=== PATIENT | female | born 1995 | race Caucasian/White ===

== ENCOUNTER 2017-02-07 19:37 | Emergency (ER) | payer OTHER ==
[~2017-02-07] VITALS: Ht 165.1 cm; Wt 108.9 kg
[~2017-02-07 19:37] MED LIST: AMOXICILLIN500 M2 PO; ANAPROX DS550 MG PO; FLAGYL500 MG PO; GEODON60 MG PO; NAPROSYN500 MG PO; PRENATAL1 TA3 PO; ZITHROMAX Z PA250 MG PO; [UNRECOGNIZED DRUG - OTHER] PO
[2017-02-07 20:13] LABS: BASO % 0.3 % (0.0-1.0); EOS # 0.1 10*3/uL (0.0-0.4); EOS % 1.1 % (1.0-4.0); HEMATOCRIT 36.6 % (37.0-47.0); HEMOGLOBIN 12.4 g/dl (12.0-16.0); LYMPH # 2.4 10*3/uL (1.3-4.4); LYMPH % 23.7 % (27.0-41.0); MEAN CELL VOLUME 78.2 fl (81.0-99.0); MEAN CORPUSCULAR HGB 26.5 pg (27.0-31.0); MEAN CORPUSCULAR HGB CONC 33.9 g/dl (33.0-37.0); MEAN PLATELET VOLUME 10.4 fl (9.6-12.3); MONO # 0.8 10*3/uL (0.1-1.0); MONO % 8.2 % (3.0-9.0); NEUT # 6.8 10*3/uL (2.3-7.9); NEUT % 66.5 % (47.0-73.0); PLATELET COUNT AUTOMATED 270 10*3/uL (130-400); RED BLOOD COUNT 4.68 10*6/uL (4.10-5.10); RED CELL DISTRI WIDTH 13.9 % (0-14.5); WHITE BLOOD COUNT 10.2 10*3/uL (4.8-10.8)
[2017-02-07 20:20] LABS: BILIRUBIN NEGATIVE (NEGATIVE); BLOOD 2+ (NEGATIVE); CLARITY CLOUDY (CLEAR); COLOR YELLOW (YELLOW); GLUCOSE NEGATIVE (NEGATIVE); KETONE NEGATIVE (NEGATIVE); LEUKO ESTERASE 2+ (NEGATIVE); NITRITE NEGATIVE (NEGATIVE); PROTEIN 1+ (NEGATIVE); SPECIFIC GRAVITY 1.025 (1.005-1.030)
[2017-02-07 20:30] LABS: ALBUMIN 3.9 gm/dl (3.1-4.5); ALKALINE PHOSPHATASE 88 U/L (45-117); BILIRUBIN, TOTAL 0.3 mg/dl (0.2-1.0); BUN 13 mg/dl (7-24); CARBON DIOXIDE 29 mmol/L (21-32); CHLORIDE 104 mmol/L (98-107); EST GLOM FILT AFRICAN AMERICAN > 60 ml/min; GLUCOSE 99 mg/dL (65-99); POTASSIUM 3.4 mmol/L (3.5-5.1); SGOT/AST 27 IU/L (3-35); SGPT/ALT 32 U/L (12-78); SODIUM 141 mmol/L (136-145); TOTAL PROTEIN 7.7 gm/dL (6.4-8.2)
[2017-02-07 20:31] LABS: BACTERIA 2+; EPITHELIAL CELLS 30-35; URINE REFLEX COMMENT YES (NO); WBC TNTC wbc/hpf (0-5)
[2017-02-07] MEDS ORDERED: Motrin,Rufen800 MG PO (21:42)
[2017-02-07] MEDS ORDERED: CEFUROXIME AXE250 MG PO (21:42)
== END 2017-02-07 21:31 | disposition home or self-care (01) ==
LOC: ED 19:37
PROVIDERS: Nurse Practitioner Family
DX: N39.0 Urinary tract infection, site not specified (principal)

== ENCOUNTER → 2017-02-08 | Outpatient (CLI) | payer OTHER ==
[~2017-02-08] MED LIST changes: +CEFUROXIME AXE250 MG PO; +MIRALAX POWDER255 G1 PO; +Motrin,Rufen800 MG PO
== END | disposition home or self-care (01) ==
LOC: US 09:25
DX: R10.11 Right upper quadrant pain (principal)

== ENCOUNTER 2017-02-09 20:16 | Emergency (ER) | payer OTHER ==
[~2017-02-09] VITALS: Ht 165.1 cm; Wt 117.9 kg
[~2017-02-09 20:16] MED LIST changes: -MIRALAX POWDER255 G1 PO
[2017-02-09 20:43] LABS: BASO % 0.3 % (0.0-1.0); EOS # 0.1 10*3/uL (0.0-0.4); EOS % 1.6 % (1.0-4.0); HEMATOCRIT 34.2 % (37.0-47.0); HEMOGLOBIN 11.5 g/dl (12.0-16.0); LYMPH # 1.9 10*3/uL (1.3-4.4); LYMPH % 24.5 % (27.0-41.0); MEAN CELL VOLUME 78.4 fl (81.0-99.0); MEAN CORPUSCULAR HGB 26.4 pg (27.0-31.0); MEAN CORPUSCULAR HGB CONC 33.6 g/dl (33.0-37.0); MONO # 0.6 10*3/uL (0.1-1.0); MONO % 7.4 % (3.0-9.0); NEUT # 5.1 10*3/uL (2.3-7.9); NEUT % 66.1 % (47.0-73.0); PLATELET COUNT AUTOMATED 228 10*3/uL (130-400); RED BLOOD COUNT 4.36 10*6/uL (4.10-5.10); WHITE BLOOD COUNT 7.7 10*3/uL (4.8-10.8)
[2017-02-09 20:59] LABS: ALBUMIN 3.8 gm/dl (3.1-4.5); ALKALINE PHOSPHATASE 73 U/L (45-117); BILIRUBIN, TOTAL 0.3 mg/dl (0.2-1.0); BUN 15 mg/dl (7-24); C-REACTIVE PROTEIN 0.34 MG/DL (0-0.3); CARBON DIOXIDE 31 mmol/L (21-32); CHLORIDE 105 mmol/L (98-107); EST GLOM FILT AFRICAN AMERICAN > 60 ml/min; GLUCOSE 100 mg/dL (65-99); SGOT/AST 16 IU/L (3-35); SGPT/ALT 25 U/L (12-78); SODIUM 141 mmol/L (136-145); TOTAL PROTEIN 7.2 gm/dL (6.4-8.2)
[2017-02-09] MEDS ORDERED: MIRALAX POWDER255 G1 PO (21:50)
== END 2017-02-09 22:28 | disposition home or self-care (01) ==
LOC: ED 20:16
PROVIDERS: Emergency Medicine Emergency Medical Services
DX: K59.00 Constipation, unspecified (principal)

== ENCOUNTER 2017-03-18 20:43 | Emergency (ER) | payer OTHER ==
[~2017-03-18] VITALS: Ht 165.1 cm; Wt 108.9 kg
[~2017-03-18 20:43] MED LIST changes: +MIRALAX POWDER255 G1 PO
[2017-03-18] MEDS ORDERED: MIRENA52 MG IU (20:50)
[2017-03-18 21:50] LABS: BILIRUBIN NEGATIVE (NEGATIVE); BLOOD NEGATIVE (NEGATIVE); CLARITY CLEAR (CLEAR); COLOR YELLOW (YELLOW); GLUCOSE NEGATIVE (NEGATIVE); KETONE NEGATIVE (NEGATIVE); LEUKO ESTERASE NEGATIVE (NEGATIVE); NITRITE NEGATIVE (NEGATIVE); PH 5.5 (5.0-9.0); PROTEIN NEGATIVE (NEGATIVE); UROBILINOGEN 0.2 E.U./dl (0.2-1.0)
[2017-03-18 21:54] LABS: BASO % 0.2 % (0.0-1.0); EOS # 0.1 10*3/uL (0.0-0.4); HEMATOCRIT 37.5 % (37.0-47.0); HEMOGLOBIN 12.8 g/dl (12.0-16.0); LYMPH # 1.7 10*3/uL (1.3-4.4); LYMPH % 18.6 % (27.0-41.0); MEAN CELL VOLUME 78.3 fl (81.0-99.0); MEAN CORPUSCULAR HGB 26.7 pg (27.0-31.0); MEAN CORPUSCULAR HGB CONC 34.1 g/dl (33.0-37.0); MEAN PLATELET VOLUME 10.3 fl (9.6-12.3); MONO # 0.7 10*3/uL (0.1-1.0); NEUT # 6.8 10*3/uL (2.3-7.9); NEUT % 72.9 % (47.0-73.0); PLATELET COUNT AUTOMATED 247 10*3/uL (130-400); RED BLOOD COUNT 4.79 10*6/uL (4.10-5.10); RED CELL DISTRI WIDTH 13.7 % (0-14.5); WHITE BLOOD COUNT 9.3 10*3/uL (4.8-10.8)
[2017-03-18 22:00] LABS: URINE AMPHETAMINES < 1000 (1000ng/ml); URINE BARBITURATES < 200 (200ng/ml); URINE COCAINE < 300 (300ng/ml)
[2017-03-18 22:01] LABS: BACTERIA TRACE; MUCOUS 1+; URINE REFLEX COMMENT YES (NO)
[2017-03-18 22:07] LABS: ALKALINE PHOSPHATASE 81 U/L (45-117); BILIRUBIN, TOTAL 0.3 mg/dl (0.2-1.0); BUN 14 mg/dl (7-24); CARBON DIOXIDE 25 mmol/L (21-32); CHLORIDE 107 mmol/L (98-107); EST GLOM FILT AFRICAN AMERICAN > 60 ml/min; GLUCOSE 110 mg/dL (65-99); POTASSIUM 3.6 mmol/L (3.5-5.1); SGOT/AST 18 IU/L (3-35); SGPT/ALT 25 U/L (12-78); SODIUM 143 mmol/L (136-145)
== END 2017-03-18 23:56 | disposition home or self-care (01) ==
LOC: ED 20:43
PROVIDERS: Nurse Practitioner Family
DX: R42 Dizziness and giddiness (principal)

== ENCOUNTER 2017-07-18 18:55 | Emergency (ER) | payer OTHER ==
[~2017-07-18] VITALS: Ht 165.1 cm; Wt 113.4 kg
[~2017-07-18 18:55] MED LIST changes: +MIRENA52 MG IU
[2017-07-18] MEDS ORDERED: AMOXICILLIN500 M2 PO (19:29)
[2017-07-18] MEDS ORDERED: Motrin,Rufen800 MG PO (19:29)
== END 2017-07-18 19:35 | disposition home or self-care (01) ==
LOC: ED 18:55
DX: K08.89 Other specified disorders of teeth and supporting structures (principal)

== ENCOUNTER 2017-11-24 16:53 | Emergency (ER) | payer OTHER ==
[~2017-11-24] VITALS: Ht 165.1 cm; Wt 117.9 kg
[2017-11-24] MEDS ORDERED: Motrin,Rufen800 MG PO (18:08)
== END 2017-11-24 19:49 | disposition home or self-care (01) ==
LOC: ED 16:53
DX: S06.0X0A Concussion without loss of consciousness, initial encounter (principal); M25.511 Pain in right shoulder; W22.01XA Walked into wall, initial encounter; Y93.72 Activity, wrestling; Y92.89 Other specified places as the place of occurrence of the external cause; Y99.9 Unspecified external cause status

== ENCOUNTER 2017-12-16 22:16 | Emergency (ER) | payer OTHER ==
[~2017-12-16] VITALS: Ht 165.1 cm; Wt 117.9 kg
[2017-12-16] MEDS ORDERED: DOXEPIN50 MG PO (22:25)
[2017-12-16 22:46] LABS: BILIRUBIN NEGATIVE (NEGATIVE); BLOOD 3+ (NEGATIVE); CLARITY CLOUDY (CLEAR); COLOR YELLOW (YELLOW); GLUCOSE NEGATIVE (NEGATIVE); KETONE NEGATIVE (NEGATIVE); LEUKO ESTERASE 1+ (NEGATIVE); NITRITE NEGATIVE (NEGATIVE); PH 5.5 (5.0-9.0); SPECIFIC GRAVITY >= 1.030 (1.005-1.030); UROBILINOGEN 0.2 E.U./dl (0.2-1.0)
[2017-12-16 22:53] LABS: BACTERIA 1+; EPITHELIAL CELLS 51-100
[2017-12-16 22:54] LABS: RBC 31-40 rbc/hpf (0-2)
[2017-12-16] MEDS ORDERED: PYRIDIUM200 M1 PO (23:04)
[2017-12-16] MEDS ORDERED: MACROBID100 M1 PO (23:04)
== END 2017-12-16 23:28 | disposition home or self-care (01) ==
LOC: ED 22:16
PROVIDERS: Emergency Medicine Emergency Medical Services
DX: R30.0 Dysuria (principal); N39.0 Urinary tract infection, site not specified

== ENCOUNTER 2017-12-20 19:48 | Emergency (ER) | payer OTHER ==
[~2017-12-20] VITALS: Ht 165.1 cm; Wt 125.2 kg
[~2017-12-20 19:48] MED LIST changes: +DOXEPIN50 MG PO; +MACROBID100 M1 PO; +PYRIDIUM200 M1 PO
[2017-12-20 20:33] LABS: BASO % 0.2 % (0.0-1.0); EOS # 0.1 10*3/uL (0.0-0.4); EOS % 1.3 % (1.0-4.0); HEMATOCRIT 37.6 % (37.0-47.0); HEMOGLOBIN 12.8 g/dl (12.0-16.0); LYMPH # 2.2 10*3/uL (1.3-4.4); LYMPH % 24.1 % (27.0-41.0); MEAN CELL VOLUME 81.9 fl (81.0-99.0); MEAN CORPUSCULAR HGB 27.9 pg (27.0-31.0); MEAN PLATELET VOLUME 10.1 fl (9.6-12.3); MONO # 0.7 10*3/uL (0.1-1.0); MONO % 7.4 % (3.0-9.0); NEUT % 66.7 % (47.0-73.0); PLATELET COUNT AUTOMATED 273 10*3/uL (130-400); RED BLOOD COUNT 4.59 10*6/uL (4.10-5.10); RED CELL DISTRI WIDTH 12.7 % (0-14.5); WHITE BLOOD COUNT 9.1 10*3/uL (4.8-10.8)
[2017-12-20 20:41] LABS: BILIRUBIN NEGATIVE (NEGATIVE); BLOOD 2+ (NEGATIVE); CLARITY SL CLOUDY (CLEAR); COLOR ORANGE (YELLOW); GLUCOSE TRACE (NEGATIVE); KETONE NEGATIVE (NEGATIVE); NITRITE POSITIVE (NEGATIVE); SPECIFIC GRAVITY 1.025 (1.005-1.030)
[2017-12-20 20:49] LABS: ALBUMIN 3.9 gm/dl (3.1-4.5); ALKALINE PHOSPHATASE 92 U/L (45-117); BUN 15 mg/dl (7-24); CHLORIDE 105 mmol/L (98-107); CREATININE 0.74 mg/dL (0.55-1.02); POTASSIUM 3.5 mmol/L (3.5-5.1); SGOT/AST 24 IU/L (3-35); SGPT/ALT 41 U/L (12-78); SODIUM 139 mmol/L (136-145); TOTAL PROTEIN 7.7 gm/dL (6.4-8.2)
[2017-12-20 20:54] LABS: LEUKO ESTERASE 1+ (NEGATIVE)
[2017-12-20 20:57] LABS: BACTERIA 2+; EPITHELIAL CELLS 31-40
[2017-12-20 20:58] LABS: RBC 21-30 rbc/hpf (0-2)
[2017-12-20] MEDS ORDERED: AMINOPHYLLIN200 MG PO (21:55)
== END 2017-12-20 21:56 | disposition home or self-care (01) ==
LOC: ED 19:48
PROVIDERS: Nurse Practitioner Family
DX: N39.0 Urinary tract infection, site not specified (principal)

== ENCOUNTER → 2018-01-29 | Outpatient (CLI) | payer OTHER ==
[~2018-01-29] MED LIST changes: +AMINOPHYLLIN200 MG PO
== END | disposition home or self-care (01) ==
LOC: CT 01-17 11:00
DX: R31.9 Hematuria, unspecified (principal); R16.1 Splenomegaly, not elsewhere classified

== ENCOUNTER 2018-02-23 16:23 | Emergency (ER) | payer OTHER ==
[~2018-02-23] VITALS: Ht 165.1 cm; Wt 120.2 kg
[2018-02-23] MEDS ORDERED: LATU40TA PO (16:34)
[2018-02-23] MEDS ORDERED: IBUPROFEN600 MG PO (18:26)
[2018-02-23] MEDS ORDERED: CEFADROXIL500 M1 PO (18:26)
== END 2018-02-23 18:49 | disposition home or self-care (01) ==
LOC: ED 16:23
DX: S61.431A Puncture wound without foreign body of right hand, initial encounter (principal); Z79.899 Other long term (current) drug therapy; W26.0XXA Contact with knife, initial encounter; Y93.89 Activity, other specified; Y92.89 Other specified places as the place of occurrence of the external cause; Y99.9 Unspecified external cause status

== ENCOUNTER 2018-05-15 21:54 | Emergency (ER) | payer OTHER ==
[~2018-05-15] VITALS: Ht 165.1 cm; Wt 127.0 kg
[~2018-05-15 21:54] MED LIST changes: +CEFADROXIL500 M1 PO; +IBUPROFEN600 MG PO; +LATU40TA PO
[2018-05-15] MEDS ORDERED: IBU800 MG PO (22:33)
[2018-05-15] MEDS ORDERED: CYCLOBENZAPRINE10 MG PO (22:33)
[2018-05-15] MEDS ORDERED: PREDNISONE50 MG PO (22:33)
== END 2018-05-15 22:45 | disposition home or self-care (01) ==
LOC: ED 21:54
DX: M54.9 Dorsalgia, unspecified (principal); Z79.899 Other long term (current) drug therapy

== ENCOUNTER 2018-06-04 17:59 | Emergency (ER) | payer OTHER ==
[~2018-06-04] VITALS: Ht 165.1 cm; Wt 117.9 kg
[~2018-06-04 17:59] MED LIST changes: +CYCLOBENZAPRINE10 MG PO; +IBU800 MG PO; +PREDNISONE50 MG PO
[2018-06-04 18:39] LABS: BASO % 0.1 % (0.0-1.0); EOS # 0.1 10*3/uL (0.0-0.4); EOS % 1.4 % (1.0-4.0); HEMATOCRIT 34.5 % (37.0-47.0); LYMPH # 1.9 10*3/uL (1.3-4.4); LYMPH % 25.3 % (27.0-41.0); MEAN CELL VOLUME 78.8 fl (81.0-99.0); MEAN CORPUSCULAR HGB 27.4 pg (27.0-31.0); MEAN CORPUSCULAR HGB CONC 34.8 g/dl (33.0-37.0); MEAN PLATELET VOLUME 9.8 fl (9.6-12.3); MONO # 0.6 10*3/uL (0.1-1.0); MONO % 7.5 % (3.0-9.0); NEUT % 65.4 % (47.0-73.0); PLATELET COUNT AUTOMATED 240 10*3/uL (130-400); RED BLOOD COUNT 4.38 10*6/uL (4.10-5.10); RED CELL DISTRI WIDTH 13.7 % (0-14.5); WHITE BLOOD COUNT 7.6 10*3/uL (4.8-10.8)
[2018-06-04 18:55] LABS: ALBUMIN 3.4 gm/dl (3.1-4.5); ALKALINE PHOSPHATASE 80 U/L (45-117); BUN 14 mg/dl (7-24); CHLORIDE 106 mmol/L (98-107); CREATININE 0.76 mg/dL (0.55-1.02); POTASSIUM 3.6 mmol/L (3.5-5.1); SGOT/AST 17 IU/L (3-35); SGPT/ALT 26 U/L (12-78); SODIUM 141 mmol/L (136-145)
== END 2018-06-04 18:58 | disposition home or self-care (01) ==
LOC: ED 17:59
PROVIDERS: Nurse Practitioner Family
DX: R68.84 Jaw pain (principal); R03.0 Elevated blood-pressure reading, without diagnosis of hypertension; Z79.899 Other long term (current) drug therapy

== ENCOUNTER 2018-07-02 17:19 | Emergency (ER) | payer OTHER ==
[~2018-07-02] VITALS: Wt 857.3 kg
== END 2018-07-02 18:33 | disposition home or self-care (01) ==
LOC: ED 17:19
DX: B34.9 Viral infection, unspecified (principal); R03.0 Elevated blood-pressure reading, without diagnosis of hypertension; F17.200 Nicotine dependence, unspecified, uncomplicated; Z79.899 Other long term (current) drug therapy

== ENCOUNTER 2018-07-27 05:59 | Emergency (ER) | payer OTHER ==
[~2018-07-27] VITALS: Ht 165.1 cm; Wt 113.4 kg
[2018-07-27] MEDS ORDERED: ZOFRAN ODT4 MG SL (07:49)
== END 2018-07-27 07:55 | disposition home or self-care (01) ==
LOC: ED 05:59
DX: G43.B0 Ophthalmoplegic migraine, not intractable (principal); Z79.899 Other long term (current) drug therapy

== ENCOUNTER 2018-08-03 02:08 | Emergency (ER) | payer OTHER ==
[~2018-08-03] VITALS: Ht 165.1 cm; Wt 117.9 kg
[~2018-08-03 02:08] MED LIST changes: +ZOFRAN ODT4 MG SL
[2018-08-03 03:01] LABS: BILIRUBIN NEGATIVE (NEGATIVE); BLOOD NEGATIVE (NEGATIVE); CLARITY CLEAR (CLEAR); COLOR YELLOW (YELLOW); GLUCOSE NEGATIVE (NEGATIVE); KETONE NEGATIVE (NEGATIVE); LEUKO ESTERASE 1+ (NEGATIVE); NITRITE NEGATIVE (NEGATIVE); UROBILINOGEN 0.2 E.U./dl (0.2-1.0)
[2018-08-03 03:07] LABS: BACTERIA TRACE
[2018-08-03 03:28] LABS: BASO % 0.5 % (0.0-1.0); EOS # 0.1 10*3/uL (0.0-0.4); EOS % 1.5 % (1.0-4.0); HEMATOCRIT 33.4 % (37.0-47.0); HEMOGLOBIN 11.5 g/dl (12.0-16.0); LYMPH # 2.1 10*3/uL (1.3-4.4); LYMPH % 24.7 % (27.0-41.0); MEAN CELL VOLUME 81.9 fl (81.0-99.0); MEAN CORPUSCULAR HGB 28.2 pg (27.0-31.0); MEAN CORPUSCULAR HGB CONC 34.4 g/dl (33.0-37.0); MEAN PLATELET VOLUME 9.7 fl (9.6-12.3); MONO # 0.6 10*3/uL (0.1-1.0); MONO % 6.9 % (3.0-9.0); NEUT # 5.6 10*3/uL (2.3-7.9); NEUT % 65.9 % (47.0-73.0); PLATELET COUNT AUTOMATED 247 10*3/uL (130-400); RED BLOOD COUNT 4.08 10*6/uL (4.10-5.10); RED CELL DISTRI WIDTH 13.5 % (0-14.5); WHITE BLOOD COUNT 8.5 10*3/uL (4.8-10.8)
[2018-08-03 03:44] LABS: ALBUMIN 3.3 gm/dl (3.1-4.5); ALKALINE PHOSPHATASE 64 U/L (45-117); BUN 10 mg/dl (7-24); CHLORIDE 107 mmol/L (98-107); CREATININE 0.76 mg/dL (0.55-1.02); LIPASE 107 U/L (73-393); POTASSIUM 3.8 mmol/L (3.5-5.1); SGOT/AST 18 IU/L (3-35); SGPT/ALT 29 U/L (12-78); SODIUM 142 mmol/L (136-145); TOTAL PROTEIN 6.9 gm/dL (6.4-8.2)
== END 2018-08-03 04:48 | disposition home or self-care (01) ==
LOC: ED 02:08
PROVIDERS: Emergency Medicine
DX: R10.9 Unspecified abdominal pain (principal); N64.4 Mastodynia; G43.B0 Ophthalmoplegic migraine, not intractable; Z79.899 Other long term (current) drug therapy

== ENCOUNTER 2018-09-22 14:07 | Emergency (ER) | payer OTHER ==
[~2018-09-22] VITALS: Ht 165.1 cm; Wt 117.9 kg
[2018-09-22 15:26] LABS: BILIRUBIN 1+ (NEGATIVE); BLOOD 3+ (NEGATIVE); CLARITY CLOUDY (CLEAR); COLOR YELLOW (YELLOW); GLUCOSE NEGATIVE (NEGATIVE); KETONE TRACE (NEGATIVE); LEUKO ESTERASE 2+ (NEGATIVE); NITRITE NEGATIVE (NEGATIVE); SPECIFIC GRAVITY 1.025 (1.005-1.030)
[2018-09-22 15:39] LABS: BACTERIA 3+; EPITHELIAL CELLS 21-30; RBC 16-20 rbc/hpf (0-2); WBC 31-40 wbc/hpf (0-5)
== END 2018-09-22 16:07 | disposition home or self-care (01) ==
LOC: ED 14:07
PROVIDERS: Emergency Medicine
DX: R10.13 Epigastric pain (principal); E66.01 Morbid (severe) obesity due to excess calories; F17.200 Nicotine dependence, unspecified, uncomplicated; Z79.899 Other long term (current) drug therapy

== ENCOUNTER 2018-10-16 22:17 | Emergency (ER) | payer OTHER ==
[~2018-10-16] VITALS: Ht 165.1 cm; Wt 117.9 kg
[2018-10-16] MEDS ORDERED: TESSALON PERLE100 M1 PO (23:14)
== END 2018-10-16 23:52 | disposition home or self-care (01) ==
LOC: ED 22:17
DX: J06.9 Acute upper respiratory infection, unspecified (principal); R32 Unspecified urinary incontinence; F17.200 Nicotine dependence, unspecified, uncomplicated; Z79.899 Other long term (current) drug therapy

== ENCOUNTER 2018-11-23 02:07 | Emergency (ER) | payer OTHER ==
[~2018-11-23] VITALS: Ht 167.6 cm; Wt 140.6 kg
[~2018-11-23 02:07] MED LIST changes: +TESSALON PERLE100 M1 PO
[2018-11-23] MEDS ORDERED: CEPHALEXIN500 M1 PO (02:19)
== END 2018-11-23 02:45 | disposition home or self-care (01) ==
LOC: ED 02:07
DX: S91.332A Puncture wound without foreign body, left foot, initial encounter (principal); Z79.899 Other long term (current) drug therapy; W22.8XXA Striking against or struck by other objects, initial encounter; Y93.89 Activity, other specified; Y92.89 Other specified places as the place of occurrence of the external cause; Y99.8 Other external cause status

== ENCOUNTER 2019-01-28 20:30 | Emergency (ER) | payer OTHER ==
[~2019-01-28] VITALS: Ht 165.1 cm; Wt 117.9 kg
[~2019-01-28 20:30] MED LIST changes: +CEPHALEXIN500 M1 PO
[2019-01-28] MEDS ORDERED: 'CLONIDINE0.1 MG PO (20:47)
[2019-01-28] MEDS ORDERED: CITALOPRAM20 MG PO (20:47)
[2019-01-28] MEDS ORDERED: HYDROXYZINE PAM25 M1 PO (20:49)
[2019-01-28 21:18] LABS: BILIRUBIN NEGATIVE (NEGATIVE); BLOOD NEGATIVE (NEGATIVE); CLARITY SL CLOUDY (CLEAR); COLOR YELLOW (YELLOW); GLUCOSE NEGATIVE (NEGATIVE); KETONE NEGATIVE (NEGATIVE); LEUKO ESTERASE 2+ (NEGATIVE); NITRITE NEGATIVE (NEGATIVE)
[2019-01-28 21:28] LABS: EPITHELIAL CELLS 16-20; WBC 16-20 wbc/hpf (0-5)
[2019-01-28 21:29] LABS: BACTERIA 1+
[2019-01-28] MEDS ORDERED: AMINOPHYLLIN200 MG PO (21:48)
== END 2019-01-28 23:30 | disposition home or self-care (01) ==
LOC: ED 20:30
PROVIDERS: Physician Assistant
DX: N39.0 Urinary tract infection, site not specified (principal); Z87.440 Personal history of urinary (tract) infections

== ENCOUNTER 2019-03-18 16:36 | Emergency (ER) | payer OTHER ==
[~2019-03-18] VITALS: Ht 165.1 cm; Wt 117.9 kg
--- NOTE | ~2019-03-18 | EKG ---
[place], [place] ELECTROCARDIOGRAM REPORT NAME: JOSSY RICE UNIT #: [id number] ROOM: DOCTOR: EPIPHANY DRAFT REPORT BIRTHDATE: [birth year] [facility] Test Date: 2019-03-18 Test Time: 17:12:51 Pat Name: JOSSY RICE Department: ER Room: Gender: F Mixer Lever Operator: EKG.CT : 1995 Requested By: DARION WALDROP Order Number: [id number] Reading MD: Tony Saucedo MD Measurements Intervals [place] Rate: 90 P: 40 MD: 148 QRS: -15 QRSD: 93 T: 8 QT: 358 QTc: 438 Interpretive Statements Sinus rhythm Borderline left axis deviation Electronically Signed On 03-21-2019 4:13:50 PDT by Tony Saucedo MD CM:EKGRPT:ELECTROCARDIOGRAM REPORT [id number] [id number] DARION WALDROP EPIPHANY DRAFT REPORT DARION WALDROP
[~2019-03-18 16:36] MED LIST changes: +'CLONIDINE0.1 MG PO; +CITALOPRAM20 MG PO; +HYDROXYZINE PAM25 M1 PO
[2019-03-18 17:09] LABS: BASO % 0.3 % (0.0-1.0); EOS # 0.1 10*3/uL (0.0-0.4); EOS % 1.1 % (1.0-4.0); HEMATOCRIT 35.6 % (37.0-47.0); HEMOGLOBIN 12.3 g/dl (12.0-16.0); LYMPH # 1.6 10*3/uL (1.3-4.4); LYMPH % 20.7 % (27.0-41.0); MEAN CELL VOLUME 81.5 fl (81.0-99.0); MEAN CORPUSCULAR HGB 28.1 pg (27.0-31.0); MEAN CORPUSCULAR HGB CONC 34.6 g/dl (33.0-37.0); MONO # 0.6 10*3/uL (0.1-1.0); MONO % 7.6 % (3.0-9.0); NEUT # 5.5 10*3/uL (2.3-7.9); PLATELET COUNT AUTOMATED 279 10*3/uL (130-400); RED BLOOD COUNT 4.37 10*6/uL (4.10-5.10); RED CELL DISTRI WIDTH 14.1 % (0-14.5); WHITE BLOOD COUNT 7.9 10*3/uL (4.8-10.8)
[2019-03-18 17:24] LABS: ALBUMIN 3.4 gm/dl (3.1-4.5); ALKALINE PHOSPHATASE 82 U/L (45-117); BUN 4 mg/dl (7-24); CHLORIDE 108 mmol/L (98-107); CREATININE 0.81 mg/dL (0.55-1.02); LIPASE 60 U/L (73-393); POTASSIUM 3.6 mmol/L (3.5-5.1); SGOT/AST 17 IU/L (3-35); SGPT/ALT 34 U/L (12-78); SODIUM 139 mmol/L (136-145); TOTAL PROTEIN 6.9 gm/dL (6.4-8.2)
[2019-03-18 17:28] LABS: TROPONIN I < 0.015 ng/ml (<0.045)
[2019-03-18] MEDS ORDERED: NAPROSYN500 MG PO (18:46)
== END 2019-03-18 19:15 | disposition home or self-care (01) ==
LOC: ED 16:36
PROVIDERS: Nurse Practitioner Family
DX: M94.0 Chondrocostal junction syndrome [Tietze] (principal)

== ENCOUNTER 2019-04-01 18:11 | Emergency (ER) | payer OTHER ==
[~2019-04-01] VITALS: Ht 165.1 cm; Wt 97.5 kg
[2019-04-01] MEDS ORDERED: PROAIR HFA8.5 GM INH (18:29)
[2019-04-01] MEDS ORDERED: TESSALON PERLE100 M1 PO (18:29)
== END 2019-04-01 20:37 | disposition home or self-care (01) ==
LOC: ED 18:11
DX: J06.9 Acute upper respiratory infection, unspecified (principal); F17.200 Nicotine dependence, unspecified, uncomplicated; Z79.2 Long term (current) use of antibiotics; Z79.899 Other long term (current) drug therapy

== ENCOUNTER 2019-05-10 22:29 | Emergency (ER) | payer OTHER ==
[~2019-05-10] VITALS: Ht 165.1 cm; Wt 117.9 kg
[~2019-05-10 22:29] MED LIST changes: +PROAIR HFA8.5 GM INH
== END 2019-05-11 00:30 | disposition home or self-care (01) ==
LOC: ED 22:29
DX: S83.91XA Sprain of unspecified site of right knee, initial encounter (principal); W01.0XXA Fall on same level from slipping, tripping and stumbling without subsequent striking against object, initial encounter; Y93.89 Activity, other specified; Y92.89 Other specified places as the place of occurrence of the external cause; Y99.8 Other external cause status

== ENCOUNTER 2019-05-30 01:06 | Emergency (ER) | payer OTHER ==
[~2019-05-30] VITALS: Ht 165.1 cm; Wt 142.4 kg
== END 2019-05-30 01:54 | disposition home or self-care (01) ==
LOC: ED 01:06
DX: M25.561 Pain in right knee (principal)

== ENCOUNTER 2019-06-04 16:21 | Emergency (ER) | payer OTHER ==
[~2019-06-04] VITALS: Ht 165.1 cm; Wt 142.4 kg
[2019-06-04] MEDS ORDERED: ANAPROX DS550 MG PO (16:52)
== END 2019-06-04 17:48 | disposition home or self-care (01) ==
LOC: ED 16:21
DX: M25.561 Pain in right knee (principal); F17.200 Nicotine dependence, unspecified, uncomplicated; Z79.899 Other long term (current) drug therapy; W18.39XA Other fall on same level, initial encounter; Y93.01 Activity, walking, marching and hiking; Y92.828 Other wilderness area as the place of occurrence of the external cause; Y99.8 Other external cause status

== ENCOUNTER 2019-10-26 11:47 | Emergency (ER) | payer OTHER ==
[~2019-10-26] VITALS: Ht 170.1 cm; Wt 131.1 kg
== END 2019-10-26 13:05 | disposition home or self-care (01) ==
LOC: ED 11:47
DX: B34.9 Viral infection, unspecified (principal); Z79.899 Other long term (current) drug therapy

== ENCOUNTER → 2019-11-09 | Outpatient (CLI) | payer OTHER | END | disposition home or self-care (01) | LOC: LAB 12:31 | DX: Z51.81 Encounter for therapeutic drug level monitoring (principal); Z79.899 Other long term (current) drug therapy ==

== ENCOUNTER → 2019-11-13 | Outpatient (CLI) | payer OTHER | END | disposition home or self-care (01) | LOC: US 09:39 | DX: N83.202 Unspecified ovarian cyst, left side (principal); R10.84 Generalized abdominal pain ==

== ENCOUNTER 2019-11-26 10:01 | Emergency (ER) | payer OTHER ==
[~2019-11-26] VITALS: Ht 165.1 cm; Wt 132.9 kg
[2019-11-26 10:43] LABS: BASO % 0.5 % (0.0-1.0); EOS # 0.3 10*3/uL (0.0-0.4); EOS % 5.4 % (1.0-4.0); HEMOGLOBIN 12.2 g/dl (12.0-16.0); LYMPH # 1.1 10*3/uL (1.3-4.4); LYMPH % 17.9 % (27.0-41.0); MEAN CELL VOLUME 81.1 fl (81.0-99.0); MEAN CORPUSCULAR HGB 26.8 pg (27.0-31.0); MEAN PLATELET VOLUME 9.9 fl (9.6-12.3); MONO # 0.6 10*3/uL (0.1-1.0); MONO % 9.8 % (3.0-9.0); NEUT # 4.1 10*3/uL (2.3-7.9); NEUT % 66.1 % (47.0-73.0); PLATELET COUNT AUTOMATED 274 10*3/uL (130-400); RED BLOOD COUNT 4.56 10*6/uL (4.10-5.10); RED CELL DISTRI WIDTH 13.7 % (0-14.5); WHITE BLOOD COUNT 6.2 10*3/uL (4.8-10.8)
[2019-11-26 10:52] LABS: BILIRUBIN NEGATIVE (NEGATIVE); BLOOD 1+ (NEGATIVE); CLARITY SL CLOUDY (CLEAR); COLOR YELLOW (YELLOW); GLUCOSE NEGATIVE (NEGATIVE); KETONE NEGATIVE (NEGATIVE); SPECIFIC GRAVITY 1.015 (1.005-1.030); UROBILINOGEN 0.2 E.U./dl (0.2-1.0)
[2019-11-26 10:53] LABS: BACTERIA 4+; EPITHELIAL CELLS 25-30; LEUKO ESTERASE TRACE (NEGATIVE); MUCOUS 1+; NITRITE NEGATIVE (NEGATIVE)
[2019-11-26 10:57] LABS: ALBUMIN 3.7 gm/dl (3.1-4.5); ALKALINE PHOSPHATASE 89 U/L (45-117); BUN 11 mg/dl (7-24); CHLORIDE 107 mmol/L (98-107); CREATININE 0.79 mg/dL (0.55-1.02); POTASSIUM 3.7 mmol/L (3.5-5.1); SGOT/AST 13 IU/L (3-35); SGPT/ALT 25 U/L (12-78); SODIUM 141 mmol/L (136-145)
[2019-11-26] MEDS ORDERED: AUGMENTIN 875-875 MG PO (12:02)
[2019-11-26] MEDS ORDERED: TESSALON PERLE100 MG PO (12:02)
== END 2019-11-26 12:18 | disposition home or self-care (01) ==
LOC: ED 10:01
PROVIDERS: Nurse Practitioner Family
DX: J01.90 Acute sinusitis, unspecified (principal); F17.200 Nicotine dependence, unspecified, uncomplicated; Z79.899 Other long term (current) drug therapy

== ENCOUNTER → 2019-11-29 | Outpatient (CLI) | payer OTHER ==
[~2019-11-29] MED LIST changes: +AUGMENTIN 875-875 MG PO; +TESSALON PERLE100 MG PO
== END | disposition home or self-care (01) ==
LOC: NM 11-27 07:00
DX: R10.84 Generalized abdominal pain (principal)

== ENCOUNTER 2020-01-19 18:39 | Emergency (ER) | payer OTHER ==
[~2020-01-19] VITALS: Ht 165.1 cm; Wt 131.1 kg
[2020-01-19] MEDS ORDERED: BROMFED DM COU118 M2 PO (19:57)
== END 2020-01-19 20:23 | disposition home or self-care (01) ==
LOC: ED 18:39
DX: J06.9 Acute upper respiratory infection, unspecified (principal); G43.909 Migraine, unspecified, not intractable, without status migrainosus; F41.9 Anxiety disorder, unspecified; F32.9 Major depressive disorder, single episode, unspecified; F17.200 Nicotine dependence, unspecified, uncomplicated; Z79.899 Other long term (current) drug therapy; Z79.2 Long term (current) use of antibiotics

== ENCOUNTER 2020-03-10 22:15 | Emergency (ER) | payer OTHER ==
[~2020-03-10] VITALS: Ht 165.1 cm; Wt 137.9 kg
[~2020-03-10 22:15] MED LIST changes: +BROMFED DM COU118 M2 PO
[2020-03-10 23:32] LABS: BASO % 0.2 % (0.0-1.0); EOS # 0.8 10*3/uL (0.0-0.4); EOS % 7.1 % (1.0-4.0); HEMATOCRIT 34.9 % (37.0-47.0); LYMPH # 2.1 10*3/uL (1.3-4.4); LYMPH % 20.3 % (27.0-41.0); MEAN CELL VOLUME 80.4 fl (81.0-99.0); MEAN CORPUSCULAR HGB CONC 33.5 g/dl (33.0-37.0); MEAN PLATELET VOLUME 9.5 fl (9.6-12.3); MONO # 0.6 10*3/uL (0.1-1.0); MONO % 5.8 % (3.0-9.0); NEUT # 6.9 10*3/uL (2.3-7.9); NEUT % 66.1 % (47.0-73.0); PLATELET COUNT AUTOMATED 290 10*3/uL (130-400); RED BLOOD COUNT 4.34 10*6/uL (4.10-5.10); RED CELL DISTRI WIDTH 13.7 % (0-14.5); WHITE BLOOD COUNT 10.5 10*3/uL (4.8-10.8)
[2020-03-10 23:46] LABS: ALBUMIN 3.5 gm/dl (3.1-4.5); ALKALINE PHOSPHATASE 67 U/L (45-117); BUN 12 mg/dl (7-24); CHLORIDE 107 mmol/L (98-107); CREATININE 0.68 mg/dL (0.55-1.02); LIPASE 65 U/L (73-393); POTASSIUM 3.7 mmol/L (3.5-5.1); SGOT/AST 17 IU/L (3-35); SGPT/ALT 25 U/L (12-78); SODIUM 138 mmol/L (136-145); TOTAL PROTEIN 7.2 gm/dL (6.4-8.2)
[2020-03-11 00:47] LABS: BILIRUBIN NEGATIVE (NEGATIVE); BLOOD NEGATIVE (NEGATIVE); CLARITY SL CLOUDY (CLEAR); COLOR YELLOW (YELLOW); GLUCOSE NEGATIVE (NEGATIVE); KETONE NEGATIVE (NEGATIVE); LEUKO ESTERASE NEGATIVE (NEGATIVE); NITRITE NEGATIVE (NEGATIVE); UROBILINOGEN 0.2 E.U./dl (0.2-1.0)
[2020-03-11 00:52] LABS: BACTERIA 1+; EPITHELIAL CELLS 31-40
== END 2020-03-11 01:30 | disposition home or self-care (01) ==
LOC: ED 22:15
PROVIDERS: Emergency Medicine
DX: O36.4XX0 Maternal care for intrauterine death, not applicable or unspecified (principal); F17.200 Nicotine dependence, unspecified, uncomplicated; Z79.899 Other long term (current) drug therapy; Z79.2 Long term (current) use of antibiotics

== ENCOUNTER 2020-03-26 18:25 | Emergency (ER) | payer OTHER | END 2020-03-26 19:55 | disposition home or self-care (01) | LOC: ED 18:25 | DX: L50.9 Urticaria, unspecified (principal); G43.909 Migraine, unspecified, not intractable, without status migrainosus; F32.9 Major depressive disorder, single episode, unspecified; F41.9 Anxiety disorder, unspecified ==

== ENCOUNTER 2020-04-02 20:48 | Emergency (ER) | payer OTHER ==
[~2020-04-02] VITALS: Ht 165.1 cm; Wt 142.9 kg
[2020-04-02 21:13] LABS: BLOOD NEGATIVE (NEGATIVE); CLARITY CLOUDY (CLEAR); COLOR YELLOW (YELLOW); GLUCOSE NEGATIVE (NEGATIVE); KETONE NEGATIVE (NEGATIVE); LEUKO ESTERASE NEGATIVE (NEGATIVE); NITRITE NEGATIVE (NEGATIVE); UROBILINOGEN 0.2 E.U./dl (0.2-1.0)
[2020-04-02 21:17] LABS: BILIRUBIN 1+ (NEGATIVE)
[2020-04-02 21:18] LABS: BACTERIA 2+; EPITHELIAL CELLS TNTC
[2020-04-02] MEDS ORDERED: KEFLEX500 M1 PO (21:22)
== END 2020-04-02 21:35 | disposition home or self-care (01) ==
LOC: ED 20:48
PROVIDERS: Physician Assistant
DX: O23.41 Unspecified infection of urinary tract in pregnancy, first trimester (principal); O26.891 Other specified pregnancy related conditions, first trimester; F32.9 Major depressive disorder, single episode, unspecified; F41.9 Anxiety disorder, unspecified; Z3A.09 9 weeks gestation of pregnancy

== ENCOUNTER 2020-09-16 14:44 | Emergency (ER) | payer OTHER ==
[~2020-09-16] VITALS: Ht 170.1 cm; Wt 135.6 kg
[~2020-09-16 14:44] MED LIST changes: +KEFLEX500 M1 PO
[2020-09-16] MEDS ORDERED: PRENATAL VITAM1 EAC4 PO (15:02)
== END 2020-09-16 15:25 | disposition home or self-care (01) ==
LOC: ED 14:44
DX: H92.02 Otalgia, left ear (principal)

== ENCOUNTER 2021-01-17 12:27 | Emergency (ER) | payer OTHER ==
[~2021-01-17] VITALS: Ht 165.1 cm; Wt 136.1 kg
[~2021-01-17 12:27] MED LIST changes: +PRENATAL VITAM1 EAC4 PO
== END 2021-01-17 14:32 | disposition home or self-care (01) ==
LOC: ED 12:27
DX: S63.616A Unspecified sprain of right little finger, initial encounter (principal); F32.9 Major depressive disorder, single episode, unspecified; F41.9 Anxiety disorder, unspecified; Z79.899 Other long term (current) drug therapy; X58.XXXA Exposure to other specified factors, initial encounter; Y93.89 Activity, other specified; Y92.89 Other specified places as the place of occurrence of the external cause; Y99.8 Other external cause status

== ENCOUNTER 2021-04-10 01:05 | Emergency (ER) | payer OTHER ==
[~2021-04-10] VITALS: Ht 165.1 cm; Wt 137.9 kg
== END 2021-04-10 03:18 | disposition home or self-care (01) ==
LOC: ED 01:05
DX: S66.912A Strain of unspecified muscle, fascia and tendon at wrist and hand level, left hand, initial encounter (principal); Z79.899 Other long term (current) drug therapy; X58.XXXA Exposure to other specified factors, initial encounter; Y93.89 Activity, other specified; Y92.89 Other specified places as the place of occurrence of the external cause; Y99.8 Other external cause status

== ENCOUNTER 2021-04-18 22:57 | Emergency (ER) | payer OTHER ==
[~2021-04-18] VITALS: Ht 165.1 cm; Wt 98.0 kg
== END 2021-04-19 01:51 | disposition home or self-care (01) ==
LOC: ED 22:57
DX: J06.9 Acute upper respiratory infection, unspecified (principal); Z20.822 Contact with and (suspected) exposure to COVID-19; F17.200 Nicotine dependence, unspecified, uncomplicated; Z79.899 Other long term (current) drug therapy

== ENCOUNTER → 2021-08-15 | Outpatient (CLI) | payer OTHER | LOC: CT 09:06 | PROVIDERS: ATTEND Family Medicine | DX: R16.1 Splenomegaly, not elsewhere classified (principal); R07.89 Other chest pain ==

== ENCOUNTER → 2022-01-12 | Outpatient (CLI) | payer OTHER ==
[2022-01-12 09:45] LABS: BASO % 0.4 % (0.0-1.0); EOS # 0.4 10*3/uL (0.0-0.4); HEMATOCRIT 34.5 % (37.0-47.0); LYMPH # 1.2 10*3/uL (1.3-4.4); LYMPH % 17.2 % (27.0-41.0); MEAN CORPUSCULAR HGB 23.9 pg (27.0-31.0); MEAN CORPUSCULAR HGB CONC 31.9 g/dl (33.0-37.0); MEAN PLATELET VOLUME 9.9 fl (9.6-12.3); MONO # 0.3 10*3/uL (0.1-1.0); MONO % 4.3 % (3.0-9.0); NEUT # 5.1 10*3/uL (2.3-7.9); NEUT % 71.1 % (47.0-73.0); PLATELET COUNT AUTOMATED 303 10*3/uL (130-400); RED CELL DISTRI WIDTH 14.7 % (0-14.5); RETICULOCYTE % 2.05 % (0.50-2.50); WHITE BLOOD COUNT 7.2 10*3/uL (4.8-10.8)
[2022-01-12 10:29] LABS: IRON 54 ug/dL (50-170); TOTAL IRON BINDING CAPACITY 356 ug/dl (250-450)
== END | disposition home or self-care (01) ==
LOC: LAB 08:46
PROVIDERS: ATTEND Family Medicine
DX: E78.5 Hyperlipidemia, unspecified (principal); R79.89 Other specified abnormal findings of blood chemistry; R53.83 Other fatigue; R74.8 Abnormal levels of other serum enzymes

== ENCOUNTER 2022-01-19 12:51 | Emergency (ER) | payer OTHER ==
[~2022-01-19] VITALS: Ht 165.1 cm; Wt 104.9 kg
== END 2022-01-19 15:06 | disposition home or self-care (01) ==
LOC: ED 12:51
DX: M25.561 Pain in right knee (principal); Z79.899 Other long term (current) drug therapy

== ENCOUNTER → 2022-03-13 | Outpatient (CLI) | payer OTHER ==
[2022-03-13 09:56] LABS: BASO % 0.4 % (0.0-1.0); EOS # 0.3 10*3/uL (0.0-0.4); EOS % 3.3 % (1.0-4.0); HEMATOCRIT 35.8 % (37.0-47.0); LYMPH # 1.8 10*3/uL (1.3-4.4); LYMPH % 21.7 % (27.0-41.0); MEAN CELL VOLUME 75.5 fl (81.0-99.0); MEAN CORPUSCULAR HGB 24.7 pg (27.0-31.0); MEAN CORPUSCULAR HGB CONC 32.7 g/dl (33.0-37.0); MONO # 0.4 10*3/uL (0.1-1.0); MONO % 5.3 % (3.0-9.0); NEUT # 5.5 10*3/uL (2.3-7.9); NEUT % 68.4 % (47.0-73.0); PLATELET COUNT AUTOMATED 308 10*3/uL (130-400); RED BLOOD COUNT 4.74 10*6/uL (4.10-5.10); RED CELL DISTRI WIDTH 16.1 % (0-14.5); WHITE BLOOD COUNT 8.1 10*3/uL (4.8-10.8)
[2022-03-13 10:14] LABS: ALKALINE PHOSPHATASE 70 U/L (45-117); BUN 10 mg/dl (7-24); CHLORIDE 105 mmol/L (98-107); CHOLESTEROL 152 mg/dL (<200); CREATININE 0.73 mg/dL (0.55-1.02); LDL CHOLESTEROL 68 mg/dL (9-159); POTASSIUM 3.5 mmol/L (3.5-5.1); SGOT/AST 30 IU/L (3-35); SGPT/ALT 59 U/L (12-78); SODIUM 139 mmol/L (136-145); TOTAL PROTEIN 7.2 gm/dL (6.4-8.2); TRIGLYCERIDES 232 mg/dl (<150)
== END | disposition home or self-care (01) ==
LOC: LAB 09:41
PROVIDERS: ATTEND Nurse Practitioner
DX: Z51.81 Encounter for therapeutic drug level monitoring (principal); Z79.899 Other long term (current) drug therapy

== ENCOUNTER → 2022-04-06 | Outpatient (CLI) | payer OTHER ==
[2022-04-06 10:15] LABS: BASO % 0.4 % (0.0-1.0); EOS # 0.2 10*3/uL (0.0-0.4); EOS % 3.7 % (1.0-4.0); HEMATOCRIT 35.2 % (37.0-47.0); LYMPH # 1.3 10*3/uL (1.3-4.4); LYMPH % 25.8 % (27.0-41.0); MEAN CELL VOLUME 79.6 fl (81.0-99.0); MEAN CORPUSCULAR HGB 26.7 pg (27.0-31.0); MEAN CORPUSCULAR HGB CONC 33.5 g/dl (33.0-37.0); MEAN PLATELET VOLUME 9.7 fl (9.6-12.3); MONO # 0.3 10*3/uL (0.1-1.0); MONO % 4.9 % (3.0-9.0); NEUT # 3.3 10*3/uL (2.3-7.9); NEUT % 64.8 % (47.0-73.0); PLATELET COUNT AUTOMATED 279 10*3/uL (130-400); RED BLOOD COUNT 4.42 10*6/uL (4.10-5.10); RED CELL DISTRI WIDTH 16.5 % (0-14.5); WHITE BLOOD COUNT 5.1 10*3/uL (4.8-10.8)
[2022-04-06 10:23] LABS: BILIRUBIN Negative (Negative); BLOOD 1+ (Negative); CLARITY Turbid (Clear); COLOR Yellow (Yellow); GLUCOSE Negative (Negative); KETONE Negative (Negative); LEUKO ESTERASE 3+ (Negative); NITRITE Negative (Negative); PH 5.5 (4.5-8.0); SPECIFIC GRAVITY 1.015 (1.001-1.030); UROBILINOGEN 0.2 E.U./dl (0.0-1.0)
[2022-04-06 10:35] LABS: CHLORIDE 108 mmol/L (98-107); POTASSIUM 3.4 mmol/L (3.5-5.1); SODIUM 140 mmol/L (136-145)
[2022-04-06 10:38] LABS: BACTERIA 4+; EPITHELIAL CELLS TNTC; RBC TNTC rbc/hpf (0-2); WBC TNTC wbc/hpf (0-5)
[2022-04-06 10:39] LABS: ALKALINE PHOSPHATASE 67 U/L (45-117); BUN 7 mg/dl (7-24); CREATININE 0.72 mg/dL (0.55-1.02); SGOT/AST 38 IU/L (3-35); SGPT/ALT 52 U/L (12-78); TOTAL PROTEIN 7.2 gm/dL (6.4-8.2)
[2022-04-07 04:12] LABS: RHEUMATOID FACTOR 10.6 IU/mL (<14.0)
[2022-04-07 12:07] LABS: ANTI-DSDNA ANTIBODIES <1 IU/mL (0-9); ANTI-RNP ANTIBODIES <0.2 AI (0.0-0.9); SJOGREN ANTI-SS-A <0.2 AI (0.0-0.9); SJOREN AB, ANTI-SS-B <0.2 AI (0.0-0.9)
[2022-04-07 13:06] LABS: HBSAG Negative (Negative); HEP B CORE AB, IGM Negative (Negative); HEPATITIS A AB IGM Negative (Negative); HEPATITIS C ANTIBODY <0.1 (0.0-0.9)
[2022-04-07 15:22] LABS: ANTICARDIOLIPIN AB, IGG, QN <9 GPL U/mL (0-14); ANTICARDIOLIPIN AB, IGM, QN 9 MPL U/mL (0-12); CARDIOLIPIN AB IGA <9 APL U/mL (0-11)
[2022-04-08 00:06] LABS: CCP ANTIBODIES IGG/IGA 8 units (0-19)
[2022-04-08 01:06] LABS: LUPUS DRVVT 44.5 sec (0.0-47.0); PTT-LA 41.3 sec (0.0-51.9)
[2022-04-08 02:06] LABS: LUPUS REFLEX INTERPRETATION Comment: (.)
== END | disposition home or self-care (01) ==
LOC: LAB 09:43
PROVIDERS: ATTEND Specialist
DX: R76.8 Other specified abnormal immunological findings in serum (principal)

== ENCOUNTER → 2022-06-18 | Outpatient (CLI) | payer OTHER ==
[2022-06-18 18:52] LABS: BILIRUBIN Negative (Negative); BLOOD Negative (Negative); CLARITY Turbid (Clear); COLOR Yellow (Yellow); GLUCOSE Negative (Negative); KETONE Negative (Negative); LEUKO ESTERASE 3+ (Negative); NITRITE Negative (Negative)
[2022-06-18 18:53] LABS: BASO % 0.3 % (0.0-1.0); EOS # 0.2 10*3/uL (0.0-0.4); EOS % 2.6 % (1.0-4.0); HEMATOCRIT 33.3 % (37.0-47.0); LYMPH # 0.9 10*3/uL (1.3-4.4); LYMPH % 15.4 % (27.0-41.0); MEAN CELL VOLUME 79.1 fl (81.0-99.0); MEAN CORPUSCULAR HGB 27.1 pg (27.0-31.0); MEAN CORPUSCULAR HGB CONC 34.2 g/dl (33.0-37.0); MEAN PLATELET VOLUME 10.3 fl (9.6-12.3); MONO # 0.4 10*3/uL (0.1-1.0); NEUT # 4.6 10*3/uL (2.3-7.9); NEUT % 75.4 % (47.0-73.0); PLATELET COUNT AUTOMATED 259 10*3/uL (130-400); RED BLOOD COUNT 4.21 10*6/uL (4.10-5.10); RED CELL DISTRI WIDTH 13.9 % (0-14.5); RETICULOCYTE % 1.99 % (0.50-2.50)
[2022-06-18 19:05] LABS: BACTERIA 3+; EPITHELIAL CELLS TNTC; WBC TNTC wbc/hpf (0-5)
[2022-06-18 19:11] LABS: BUN 8 mg/dl (7-24); CHLORIDE 107 mmol/L (98-107); CHOLESTEROL 128 mg/dL (<200); CREATININE 0.73 mg/dL (0.55-1.02); IRON 31 ug/dL (50-170); POTASSIUM 3.2 mmol/L (3.5-5.1); SGOT/AST 18 IU/L (3-35); SGPT/ALT 52 U/L (12-78); SODIUM 139 mmol/L (136-145); TRIGLYCERIDES 179 mg/dl (<150)
[2022-06-18 19:15] LABS: ALKALINE PHOSPHATASE 72 U/L (45-117); LDL CHOLESTEROL 60 mg/dL (9-159)
== END | disposition home or self-care (01) ==
LOC: RAD 18:00
PROVIDERS: ATTEND Family Medicine
DX: M17.11 Unilateral primary osteoarthritis, right knee (principal); R79.89 Other specified abnormal findings of blood chemistry; E78.5 Hyperlipidemia, unspecified; R53.83 Other fatigue; E11.9 Type 2 diabetes mellitus without complications; R74.8 Abnormal levels of other serum enzymes

== ENCOUNTER 2022-11-27 22:53 | Emergency (ER) | payer OTHER ==
[~2022-11-27] VITALS: Ht 165.1 cm; Wt 142.4 kg
== END 2022-11-28 00:51 | disposition home or self-care (01) ==
LOC: ED 22:53
DX: S96.911A Strain of unspecified muscle and tendon at ankle and foot level, right foot, initial encounter (principal); X50.1XXA Overexertion from prolonged static or awkward postures, initial encounter; Y93.9 Activity, unspecified; Y92.89 Other specified places as the place of occurrence of the external cause; Y99.8 Other external cause status

== ENCOUNTER 2022-12-21 13:34 | Emergency (ER) | payer OTHER ==
[~2022-12-21] VITALS: Wt 143.3 kg
== END 2022-12-21 15:57 | disposition home or self-care (01) ==
LOC: ED 13:34
DX: S93.401A Sprain of unspecified ligament of right ankle, initial encounter (principal); F32.A Depression, unspecified; F41.9 Anxiety disorder, unspecified; X50.1XXA Overexertion from prolonged static or awkward postures, initial encounter; Y93.89 Activity, other specified; Y92.89 Other specified places as the place of occurrence of the external cause; Y99.8 Other external cause status

== ENCOUNTER 2025-06-06 13:44 | Emergency (ER) | payer OTHER ==
[~2025-06-06] VITALS: Ht 165.1 cm; Wt 111.1 kg
[2025-06-06] MEDS ORDERED: GNP PRENATAL 28-0.8 (13:50)
[2025-06-06] MEDS ORDERED: CYCLOBENZAPRINE10 MG PO (13:50)
[2025-06-06] MEDS ORDERED: FEROSUL325 M1 PO (13:50)
[2025-06-06] MEDS ORDERED: NAPROXEN 250 MG TAB PO ONE (14:05)
[2025-06-06] MEDS ORDERED: VALTREX500 MG PO (14:20)
[2025-06-06] MEDS ORDERED: NAPROSYN500 MG PO (14:20)
== END 2025-06-06 14:33 | disposition home or self-care (01) ==
LOC: ED 13:44
DX: K06.8 Other specified disorders of gingiva and edentulous alveolar ridge (principal); Z79.899 Other long term (current) drug therapy

== ENCOUNTER → 2025-08-22 | Outpatient (CLI) | payer OTHER ==
[~2025-08-22] MED LIST changes: +FEROSUL325 M1 PO; +GNP PRENATAL 28-0.8; +VALTREX500 MG PO
[2025-08-22 15:58] LABS: BASO # 0.0 10*3/uL (0.0-0.1); BASO % 0.4 % (0.0-1.0); EOS # 0.2 10*3/uL (0.0-0.4); EOS % 2.6 % (1.0-4.0); MEAN CELL VOLUME 84.1 fl (81.0-99.0); MEAN CORPUSCULAR HGB 29.4 pg (27.0-31.0); MEAN PLATELET VOLUME 10.1 fl (9.6-12.3); MONO # 0.6 10*3/uL (0.1-1.0); MONO % 7.4 % (3.0-9.0); NEUT # 5.2 10*3/uL (2.3-7.9); NEUT % 67.0 % (47.0-73.0); NUCLEATED RED BLOOD CELL 0.0 % (0.0-0.0); NUCLEATED RED BLOOD CELL 0.0 10*3/uL (0.0-0.0); PLATELET COUNT AUTOMATED 253 10*3/uL (130-400); RED CELL DISTRI WIDTH 12.3 % (0-14.5); RETICULOCYTE % 1.95 % (0.50-2.50)
[2025-08-22 15:59] LABS: BILIRUBIN Negative (Negative); BLOOD Negative (Negative); CLARITY Cloudy (Clear); COLOR Yellow (Yellow); KETONE Trace (Negative); LEUKO ESTERASE Trace (Negative); NITRITE Negative (Negative); PH 6.5 (4.5-8.0); SPECIFIC GRAVITY 1.020 (1.001-1.030); UROBILINOGEN 1.0 E.U./dl (0.0-1.0)
[2025-08-22 16:08] LABS: BACTERIA 1+; EPITHELIAL CELLS 21-30; MUCOUS 2+
[2025-08-22 16:23] LABS: BUN 10 mg/dl (9-23); GAMMA GLUTAMYL TRANSFERASE 14 U/L (0-38); LDL CHOLESTEROL 88 mg/dL (9-159); SGPT/ALT 14 U/L (5-49); T3 UPTAKE 33.8 % (22.4-36.7); THYROXINE (T4) TOTAL 6.2 ug/dl (4.5-10.9)
[2025-08-22 16:53] LABS: VITAMIN D, 25-HYDROXY 21.5 ng/mL (30-100)
[2025-08-24 08:07] LABS: ANTI-DSDNA ANTIBODIES <1 IU/mL (0-9)
== END | disposition home or self-care (01) ==
LOC: LAB 15:11
PROVIDERS: ATTEND Family Medicine
DX: R79.89 Other specified abnormal findings of blood chemistry (principal); E78.5 Hyperlipidemia, unspecified; R53.83 Other fatigue; E55.9 Vitamin D deficiency, unspecified